=== PATIENT | female | born 1960 | race Caucasian/White ===

== ENCOUNTER → 2017-04-24 | Outpatient (CLI) | payer OTHER | LOC: FIMAGING 13:20 | PROVIDERS: ATTEND Internal Medicine | DX: Z12.31 Encounter for screening mammogram for malignant neoplasm of breast (principal) | CPT/HCPCS: G0202 ==

== ENCOUNTER → 2017-11-13 | Outpatient (CLI) | payer OTHER | LOC: BMCIMAGING 13:47 | PROVIDERS: ATTEND Internal Medicine | DX: S62.102A Fracture of unspecified carpal bone, left wrist, initial encounter for closed fracture (principal); S82.041A Displaced comminuted fracture of right patella, initial encounter for closed fracture; M25.461 Effusion, right knee; W19.XXXA Unspecified fall, initial encounter ==

== ENCOUNTER → 2017-11-15 | Outpatient (CLI) | payer OTHER | LOC: CIMAGING 13:18 | PROVIDERS: ATTEND Orthopaedic Surgery Hand Surgery | DX: S62.175A Nondisplaced fracture of trapezium [larger multangular], left wrist, initial encounter for closed fracture (principal); W19.XXXA Unspecified fall, initial encounter | CPT/HCPCS: 73200-PO ==

== ENCOUNTER → 2017-11-20 | Outpatient (CLI) | payer OTHER | LOC: BMCIMAGING 11:35 | PROVIDERS: ATTEND Orthopaedic Surgery Hand Surgery | DX: S82.091A Other fracture of right patella, initial encounter for closed fracture (principal) ==

== ENCOUNTER → 2017-12-06 | Outpatient (CLI) | payer OTHER | LOC: BMCIMAGING 12:37 | PROVIDERS: ATTEND Orthopaedic Surgery Hand Surgery | DX: S62.175D Nondisplaced fracture of trapezium [larger multangular], left wrist, subsequent encounter for fracture with routine healing (principal); S82.044D Nondisplaced comminuted fracture of right patella, subsequent encounter for closed fracture with routine healing ==

== ENCOUNTER → 2017-12-30 | Outpatient (CLI) | payer OTHER | LOC: BMCIMAGING 09:24 | PROVIDERS: ATTEND Orthopaedic Surgery Hand Surgery | DX: S82.034D Nondisplaced transverse fracture of right patella, subsequent encounter for closed fracture with routine healing (principal); S62.175D Nondisplaced fracture of trapezium [larger multangular], left wrist, subsequent encounter for fracture with routine healing ==

== ENCOUNTER → 2018-07-26 | Outpatient (CLI) | payer OTHER | LOC: FIMAGING 13:48 | PROVIDERS: ATTEND Internal Medicine | DX: Z12.31 Encounter for screening mammogram for malignant neoplasm of breast (principal) ==